=== PATIENT | female | born 1985 | race Caucasian/White ===

== ENCOUNTER 2023-08-29 18:59 | Inpatient (IN) | payer MEDICAID ==
[~2023-08-29] VITALS: Ht 170.2 cm; Wt 83.7 kg
[~2023-08-29 18:59] MED LIST: OLAN5TAB94 PO
[2023-08-29] MEDS ORDERED: HALOPERIDOL 5 MG TABLET PO PRN (19:30)
[2023-08-29 20:11] LABS: GLUCOMETER DEV NAME(LOC) POC.BV; POC SARS-COV2 AG, FIA NEGATIVE (NEGATIVE)
[2023-08-29 21:33] VITALS: BP 140/90; PULSE 85; RESP 16; TEMP 97.3; O2SAT 99
[2023-08-30 00:30] VITALS: BP 132/81; PULSE 75; RESP 16; TEMP 97; O2SAT 96
[2023-08-30 08:27] VITALS: BP 124/82; PULSE 70; RESP 16; TEMP 97.3; O2SAT 97
[2023-08-30] MEDS: OLANZapine 7.5 MG TABLET PO SCH (09:00)
[2023-08-30] MEDS ORDERED: CloNIDine HCL 0.1 MG TABLET PO PRN (16:15)
[2023-08-30] MEDS ORDERED: LOPERAMIDE HCL 2 MG CAPSULE PO PRN (16:15)
[2023-08-30] MEDS ORDERED: GuaiFENesin/D-METHORPHAN [SUGAR-FREE] 200-20MG/10 ML SYRUP UDCUP PO PRN (16:15)
[2023-08-30] MEDS ORDERED: ALBUTEROL SULFATE HFA 90 MCG/PUFF 8 GM INHALER IH PRN (16:15)
[2023-08-30] MEDS ORDERED: DOCUSATE SODIUM 100 MG CAPSULE PO PRN (16:15)
[2023-08-30] MEDS ORDERED: MAGNESIUM HYDROXIDE SUSPENSION 30 ML UDCUP PO PRN (16:15)
[2023-08-30] MEDS ORDERED: NICOTINE 14 MG/24 HOUR PATCH TD PRN (16:15)
[2023-08-30] MEDS ORDERED: PETROLATUM,WHITE 28 GM JELLY TP PRN (16:15)
[2023-08-30] MEDS ORDERED: ACETAMINOPHEN 325 MG TABLET PO PRN (16:15)
[2023-08-30] MEDS ORDERED: ONDANSETRON HCL 4 MG TABLET PO PRN (16:15)
[2023-08-30] MEDS ORDERED: MAG HYDROX/ALUMINUM HYD/SIMETH ES 30 ML SUSPENSION UDCUP PO PRN (16:15)
[2023-08-30 20:00] VITALS: BP 115/66; PULSE 75; RESP 16; TEMP 98; O2SAT 99
[2023-08-31] MEDS: LORazepam 2 MG TABLET PO PRN (09:16)
[2023-08-31 11:50] LABS: CHOL/HDL RATIO 2.7 (3.9-5.7)
[2023-08-31 11:59] LABS: HEMOGLOBIN A1C 5.6 % (3.8-5.6)
[2023-08-31 12:23] LABS: THYROID STIMULATING HORMONE 0.41 uIU/mL (0.36-3.74)
[2023-08-31 15:43] VITALS: BP 124/80; PULSE 83; RESP 1; TEMP 98.6; O2SAT 98
[2023-08-31 20:40] VITALS: RESP 18
[2023-08-31] MEDS: ZOLPIDEM TARTRATE 10 MG TABLET PO PRN (21:19)
[2023-09-01 08:24] VITALS: RESP 16
[2023-09-01 20:00] VITALS: BP 136/83; PULSE 92; RESP 17; TEMP 98.2; O2SAT 99
[2023-09-02 12:28] VITALS: RESP 18
[2023-09-02 21:00] VITALS: BP 138/97; PULSE 93; RESP 18; TEMP 97.3; O2SAT 98
[2023-09-02] MEDS: IBUPROFEN 400 MG TABLET PO PRN (23:54)
[2023-09-03 00:05] VITALS: BP 132/86; PULSE 84; RESP 18; TEMP 98.2; O2SAT 97
[2023-09-03 08:26] VITALS: BP 127/81; PULSE 75; RESP 16; TEMP 97.3; O2SAT 96
== END 2023-09-03 17:13 | disposition left against medical advice (07) | DRG 750 ==
LOC: B3A 19:25
PROVIDERS: ADMIT Psychiatry & Neurology Child & Adolescent Psychiatry; ATTEND Psychiatry & Neurology Child & Adolescent Psychiatry
PROC: GZ56ZZZ Individual Psychotherapy, Supportive (ICD-10-PCS; principal; 2023-08-30)
PROC: GZ52ZZZ Individual Psychotherapy, Cognitive (ICD-10-PCS; 2023-08-30)
DX: F20.9 Schizophrenia, unspecified (principal); F41.9 Anxiety disorder, unspecified; G47.00 Insomnia, unspecified; R10.13 Epigastric pain; Z20.822 Contact with and (suspected) exposure to COVID-19; Z53.29 Procedure and treatment not carried out because of patient's decision for other reasons; Z88.0 Allergy status to penicillin
CPT/HCPCS: 80061; 83036; 84443; 87081